=== PATIENT | female | born 1960 | race Caucasian/White ===

== ENCOUNTER 2020-07-20 08:32 | Emergency (ER) | payer OTHER ==
[~2020-07-20] VITALS: Ht 157.5 cm; Wt 74.8 kg
[2020-07-20] MEDS ORDERED: METFORMIN HCL500 MG PO (08:48)
[2020-07-20] MEDS ORDERED: ZESTRIL10 MG PO (08:48)
[2020-07-20 11:02] LABS: ABSOLUTE LYMPHOCYTES 1.7 thou/uL (0.8-5.3); ABSOLUTE MONOCYTES 0.4 thou/uL (0.0-1.2); ABSOLUTE NEUTROPHILS 5.5 thou/uL (1.6-8.1); BASOPHILS 0.4 %; EOSINOPHILS 0.3 %; HEMATOCRIT 44.6 % (37.0-47.0); HEMOGLOBIN 15.4 gm/dL (12.0-15.0); LYMPHOCYTES 22.3 %; MCH 30.7 pg (26.0-34.0); MCHC 34.6 g/dL (28.0-37.0); MCV 88.8 fL (80.0-100.0); MONOCYTES 5.6 %; MPV 7.3 fl. (7.2-11.1); NUCLEATED RBCS 0 /100WBC; PLATELET COUNT* 289 thou/uL (150-400); POLYS 71.4 %; RBC 5.02 mil/uL (4.20-5.00); RDW-CV 12.9 % (10.5-14.5); WBC 7.7 thou/uL (4.0-11.0)
[2020-07-20 11:17] LABS: CALCIUM 8.8 mg/dL (8.5-10.1); CREATININE 0.6 mg/dL (0.6-1.3); POTASSIUM 4.2 mmol/L (3.5-5.1)
[2020-07-20 11:21] LABS: ALBUMIN 4.1 g/dL (3.4-5.0); TOTAL BILIRUBIN 0.5 mg/dL (<0.1-1.0); TOTAL PROTEIN 7.8 g/dL (6.4-8.2)
[2020-07-20 12:51] LABS: URINE BILIRUBIN NEGATIVE (Negative); URINE BLOOD 1+ (Negative); URINE CLARITY CLEAR; URINE COLOR YELLOW; URINE GLUCOSE-RANDOM 2+ (Negative); URINE KETONES 1+ (Negative); URINE LEUKOCYTES-REFLEX 1+ (Negative); URINE NITRITE-REFLEX NEGATIVE (Negative); URINE PROTEIN NEGATIVE (Negative); URINE SPECIFIC GRAVITY 1.015 (1.005-1.030); URINE UROBILINOGEN 0.2 E.U./dl (0.2-1.0)
[2020-07-20 12:58] LABS: CASTS None Seen /LPF (None Seen); MUCUS 0-3 Light strn/LPF (None Seen); SQUAMOUS >10 Many /LPF (0-3)
[2020-07-20 12:59] LABS: BACTERIA-REFLEX 1-9 Few /HPF (None Seen); CRYSTALS None Seen /LPF (None Seen); URINE RBC 0-2 Rare /HPF (0-2); URINE WBC-REFLEX 0-5 Rare /HPF (0-5)
[2020-07-20] MEDS ORDERED: DOXYCYCLINE 10100 MG PO (13:05)
[2020-07-20 13:21] VITALS: BP 140/72
--- NOTE | 2020-07-20 17:30 | EKG ---
[place] [address] ELECTROCARDIOGRAM REPORT Name: CANDICEMAILESTACIA L Room: [facility]#: [id number] Admission: 07/20/20 Attend Phys: Discharge: 07/20/20 Date of : 64 Date of Service: 07/20/20 1132 Report #: [id number] THIS REPORT FOR: //name// [facility] ED Test Date: 2020-07-20 Test Time: 11:32:33 Pat Name: STACIA HARVEY Department: Room: Gender: Bag Builder: [facility] : 1960 Requested By: Holli Delgado Order Number: [id number] MD: Michael Vasquez Measurements Intervals [place] Rate: 67 P: 6 MN: 177 QRS: -4 QRSD: 90 T: 47 QT: 386 QTc: 408 Interpretive Statements Sinus rhythm No previous ECG available for comparison Electronically Signed On 07-20-2020 17:29:54 CDT by Michael Vasquez [email or web address] <ELECTRONICALLY SIGNED> By: Michael Vasquez MD, [facility] 07/20/20 1729 D: 05/1131 31 Michael Vasquez MD, FACC /EPI
== END 2020-07-20 13:22 | disposition home or self-care (01) ==
LOC: M.ERS 08:32
PROVIDERS: Nurse Practitioner Family
DX: H81.10 Benign paroxysmal vertigo, unspecified ear (principal); Z20.822 Contact with and (suspected) exposure to COVID-19; R09.81 Nasal congestion; E11.9 Type 2 diabetes mellitus without complications; I10 Essential (primary) hypertension